=== PATIENT | female | born 1955 | race Caucasian/White ===

== ENCOUNTER 2020-09-14 19:45 | Emergency (ER) | payer OTHER, MEDICAID ==
[~2020-09-14] VITALS: Ht 162.6 cm; Wt 56.0 kg
[~2020-09-14 19:45] MED LIST: ALPR0.25 PO; DULO60CA44 PO; ELIQUIS PO; RISP4 PO; SIMV-46 PO
[2020-09-14] MEDS ORDERED: ONDANSETRON HCL 4MG/2ML INJ IV STA (20:58)
[2020-09-14] MEDS ORDERED: SODIUM CHLORIDE 0.9% 1,000 ML IV ONE (21:00)
[2020-09-14 21:45] LABS: BASOPHILS % 0.1 % (0.0-2.0); EOSINOPHILS % 0.2 % (0.0-5.0); HEMATOCRIT. 51.5 % (36.0-48.0); HEMOGLOBIN. 17.7 g/dL (12.0-16.0); LYMPHOCYTES % 19.5 % (20.0-50.0); MEAN CORPUSCULAR HEMOGLOBIN 30.7 pg (28.0-32.0); MEAN CORPUSCULAR VOLUME 89.3 fL (81.0-99.0); MEAN PLATELET VOLUME 7.6 fl (7.4-10.4); MONOCYTES % 13.4 % (2.0-8.0); NEUTROPHILS % 66.8 % (40.0-76.0); PLATELET 285 x1000/uL (130-400); RED BLOOD CELL COUNT 5.77 mill/uL (4.2-5.4)
[2020-09-14 21:48] LABS: CHLORIDE 89 mEq/L (98-107)
[2020-09-14] MEDS ORDERED: POTASSIUM CHLORIDE 20MEQ TABLET SR PO NR (22:30)
[2020-09-14] MEDS ORDERED: KCL 10MEQ/50ML PREMIX 50 ML IV NR (22:30)
[2020-09-14] MEDS ORDERED: LORAZEPAM 2MG/ML CPJ IV ONE (22:30)
[2020-09-14 22:40] LABS: CLARITY URINE CLOUDY (CLEAR); COLOR URINE YELLOW (YELLOW); KETONES URINE NEGATIVE (NEGATIVE); LEUKOCYTE ESTERASE URINE TRACE (NEGATIVE); NITRITE URINE NEGATIVE (NEGATIVE); OCCULT BLOOD URINE TRACE (NEGATIVE); PH URINE 6.5 (4.5-8.0); PROTEIN URINE TRACE (NEGATIVE); SPECIFIC GRAVITY URINE 1.008 (1.005-1.030)
[2020-09-15] MEDS ORDERED: HALOPERIDOL LACTATE 5MG/ML VIAL IM ONE (00:30)
[2020-09-15] MEDS ORDERED: ZIPRASIDONE MESYLATE 20MG/VIAL IM NR (02:00)
[2020-09-15 03:23] VITALS: BP 167/89
== END 2020-09-15 03:39 | disposition short-term general hospital (02) ==
LOC: ER 19:45 → CANBEDREQ 09-15 05:52
DX: K85.90 Acute pancreatitis without necrosis or infection, unspecified (principal); E87.6 Hypokalemia; E86.0 Dehydration; F41.9 Anxiety disorder, unspecified; J44.9 Chronic obstructive pulmonary disease, unspecified; I10 Essential (primary) hypertension; F32.9 Major depressive disorder, single episode, unspecified; Z98.51 Tubal ligation status; Z90.710 Acquired absence of both cervix and uterus
CPT/HCPCS: 36415; 71045; 80053; 81003; 83690; 83735; 85025; 93005; 96361; 96365; 96372; 96374; 96375; 99285; J1630; J2060; J2405; J3480; J3486; J7030

== ENCOUNTER 2021-06-09 19:36 | Emergency (ER) | payer OTHER, MEDICAID ==
[~2021-06-09] VITALS: Ht 170.2 cm; Wt 50.0 kg
[2021-06-09 21:10] LABS: BASOPHILS % 0.5 % (0.0-2.0); EOSINOPHILS % 1.9 % (0.0-5.0); HEMATOCRIT. 46.9 % (36.0-48.0); HEMOGLOBIN. 15.7 g/dL (12.0-16.0); LYMPHOCYTES % 19.3 % (20.0-50.0); MEAN CORPUSCULAR HEMOGLOBIN 30.7 pg (28.0-32.0); MEAN CORPUSCULAR VOLUME 91.7 fL (81.0-99.0); MONOCYTES % 8.2 % (2.0-8.0); NEUTROPHILS % 70.1 % (40.0-76.0); PLATELET 304 x1000/uL (130-400); RED BLOOD CELL COUNT 5.12 mill/uL (4.2-5.4); RED CELL DISTRIBUTION WIDTH 14.2 % (11.6-14.6)
[2021-06-09 21:18] LABS: CHLORIDE 96 mEq/L (98-107)
[2021-06-09] MEDS ORDERED: KETOROLAC 15MG/ML VIAL IM ONE (21:45)
[2021-06-10 01:56] VITALS: BP 138/75
== END 2021-06-10 01:58 | disposition home or self-care (01) ==
LOC: ER 19:36
DX: S20.212A Contusion of left front wall of thorax, initial encounter (principal); J44.1 Chronic obstructive pulmonary disease with (acute) exacerbation; I10 Essential (primary) hypertension; Z98.51 Tubal ligation status; W18.30XA Fall on same level, unspecified, initial encounter; Y93.89 Activity, other specified; Y92.89 Other specified places as the place of occurrence of the external cause; Y99.8 Other external cause status
CPT/HCPCS: 36415; 71250; 80053; 85025; 96372; 99284; J1885